=== PATIENT | male | born 1960 | race Caucasian/White ===

== ENCOUNTER 2021-11-11 14:57 | Outpatient (CLI) | payer BC, SELFPAY ==
--- NOTE | 2021-11-11 15:30 | CRLHL7_ITS ---
For Patients: As a result of the Century Cures Act, medical imaging exams and procedure reports are released immediately into your electronic medical record. You may view this report before your referring provider. If you have questions, please contact your health care provider. INDICATION: Low back pain. Leg numbness. Muscle spasms. COMPARISON: None. TECHNIQUE: Sagittal T1, T2, and STIR sequences. Axial T1 and T2 weighted sequences. FINDINGS: Normal vertebral body alignment. No fractures. No vertebral body loss of height. No spondylolisthesis. Mature postoperative changes of right hemilaminectomy at L4-5 and left hemilaminectomy at L5-S1. No suspicious osseous lesions. Normal conus terminates at L1. T12-L1 L1-2: No spinal canal or neural foraminal narrowing. L2-3: Disc degeneration. Diffuse disc bulge eccentric to the left. No narrowing of spinal canal. Mild narrowing of the left neural foramen. No narrowing of the right neural foramen. Mild facet arthropathy. L3-4: Disc degeneration. Diffuse disc bulge. Mild narrowing of spinal canal. No neural foraminal narrowing. Mild facet arthropathy. L4-5: Disc degeneration. Diffuse disc bulge. Right paracentral disc protrusion measures approximately 3 mm in short axis. No narrowing of spinal canal. No neural foraminal narrowing. Mild facet arthropathy. L5-S1: Disc degeneration. Loss disc height. Diffuse disc bulge. Posterior disc herniation measures approximately 3 mm in short axis. Otherwise, no narrowing of the spinal canal. No atul impingement of the traversing S1 nerve roots. Mild narrowing of bilateral foramina. Degenerative changes visualized SI joints. IMPRESSION: 1. Normal alignment. No fractures 2. Mature postoperative changes of right hemilaminectomy at L4-5 and left hemilaminectomy at L5-S1. 3. At L2-3, mild narrowing of the left neural foramina 4. At L3-4, mild narrowing of the spinal canal 5. At L4-5, right paracentral disc protrusion. No narrowing of the spinal canal. No neural foraminal narrowing. 6. At L5-S1, posterior disc herniation. No narrowing of the spinal canal. Mild narrowing of the bilateral neural foramina Dictated by Celso Awad MD @ 11/12/2021 11:22:08 AM (Electronically Signed)
== END 2021-11-11 14:58 | disposition home or self-care (01) ==
PROVIDERS: Visit Provider Family Medicine
DX: M54.50 Low back pain, unspecified (principal); M51.26 Other intervertebral disc displacement, lumbar region; M51.27 Other intervertebral disc displacement, lumbosacral region; G89.29 Other chronic pain; R20.0 Anesthesia of skin; M62.838 Other muscle spasm
CPT/HCPCS: 72148

== ENCOUNTER 2022-02-04 10:18 | Outpatient (CLI) | payer BC, SELFPAY | END 2022-02-04 10:19 | disposition home or self-care (01) | LOC: INJ CL 10:19 | PROVIDERS: PCP Family Medicine; Visit Provider Family Medicine | DX: M54.16 Radiculopathy, lumbar region (principal) | CPT/HCPCS: 64483; J1100; Q9966 ==

== ENCOUNTER 2022-07-17 07:52 | Outpatient (CLI) | payer BC, SELFPAY ==
[2022-07-17 14:36] LABS: Microalbumin Urine 2 mg/dL
[2022-07-17 15:52] LABS: Creatinine Urine 153.8 mg/dL; Microalbumin Creatinine Ratio 10 mg/g (0-30)
== END 2022-07-17 07:53 | disposition home or self-care (01) ==
PROVIDERS: PCP Family Medicine; Visit Provider Family Medicine
DX: Z00.00 Encounter for general adult medical examination without abnormal findings (principal); E11.65 Type 2 diabetes mellitus with hyperglycemia; E78.5 Hyperlipidemia, unspecified; I10 Essential (primary) hypertension; R73.03 Prediabetes; Z13.6 Encounter for screening for cardiovascular disorders; Z11.59 Encounter for screening for other viral diseases; Z79.899 Other long term (current) drug therapy
CPT/HCPCS: 80053; 80061; 82043; 82570; 82607; 84156; 86803

== ENCOUNTER 2023-07-14 06:30 | Outpatient (CLI) | payer BC, SELFPAY ==
[2023-07-14 15:50] LABS: Chlamydia DNA Amplified* NOT DETECTED (No Detected); GC DNA Amplified* NOT DETECTED (No Detected)
== END 2023-07-14 06:31 | disposition home or self-care (01) ==
PROVIDERS: PCP Family Medicine; Visit Provider Family Medicine
DX: E78.5 Hyperlipidemia, unspecified (principal); I10 Essential (primary) hypertension; E11.65 Type 2 diabetes mellitus with hyperglycemia; Z11.3 Encounter for screening for infections with a predominantly sexual mode of transmission; Z12.5 Encounter for screening for malignant neoplasm of prostate; Z79.84 Long term (current) use of oral hypoglycemic drugs
CPT/HCPCS: 80053; 80061; 82043; 82570; 82607; 86592; 86703; 87491; 87591; G0103

== ENCOUNTER 2024-06-28 11:04 | Outpatient (CLI) | payer OTHER, SELFPAY | END 2024-06-28 11:05 | disposition home or self-care (01) | PROVIDERS: PCP Family Medicine; Visit Provider Family Medicine | DX: I10 Essential (primary) hypertension (principal); E78.5 Hyperlipidemia, unspecified; E11.65 Type 2 diabetes mellitus with hyperglycemia; Z12.5 Encounter for screening for malignant neoplasm of prostate; Z13.21 Encounter for screening for nutritional disorder | CPT/HCPCS: 80053; 80061; 82043; 82570; 82607; G0103 ==